=== PATIENT | female | born 1960 | race Caucasian/White ===

== ENCOUNTER → 2020-11-11 06:58 | Outpatient (CLI) | payer MEDICARE, SELFPAY ==
--- NOTE | 2020-11-11 07:14 | XR_ITS ---
PROCEDURE: XR HIP LT 2-3V W/PELVIS CLINICAL INDICATION: ALMA HIP PAIN COMPARISON: No exams were available for comparison FINDINGS: There are severe osteoarthritic changes of the left hip with superior and lateral subluxation of the femoral head. Osteosclerosis involves the femoral head and acetabular with prominent osteophyte formation of the femoral head and acetabulum. There is flattening of the femoral head. The left acetabulum is somewhat shallow with the roof tilting upward. No acute fracture or dislocation is evident. Lucency is present at the base of the lesser trochanter consistent with an ununited ossification center. A separate area of calcification is noted along the lateral aspect of the acetabulum suggesting a loose body IMPRESSION: Severe osteoarthritic changes of the left hip with dysplastic changes of the acetabulum and femoral head. There is lateral subluxation of the femoral head. Prominent osteophytes with osteosclerosis noted with loose body along the lateral acetabulum. Dictated by: Michael Livingston MD 11/11/2020 12:34 Michael Livingston MD in [place] 11/11/2020 12:34
--- NOTE | 2020-11-11 07:14 | XR_ITS ---
PROCEDURE: XR HIP RT 2-3V W/PELVIS CLINICAL INDICATION: Pain COMPARISON: CR XR HIP LT 2-3V W/PELVIS from 11/11/2020 FINDINGS: There are mild osteoarthritic changes of the right hip with slight decrease in the joint space with osteophyte formation of the acetabulum. No fracture or dislocation. No lytic or blastic change. IMPRESSION: Mild osteoarthritis of the right hip Dictated by: Michael Livingston MD 11/11/2020 12:30 Michael Livingston MD in [place] 11/11/2020 12:30
== END ==
PROVIDERS: PCP Internal Medicine Adolescent Medicine; Visit Provider Internal Medicine Adolescent Medicine
DX: M25.552 Pain in left hip (principal); M25.551 Pain in right hip
CPT/HCPCS: 73502

== ENCOUNTER → 2022-03-15 13:47 | Outpatient (CLI) | payer MEDICARE, MEDICAID, SELFPAY ==
--- NOTE | 2022-03-15 13:51 | XR_ITS ---
FINAL REPORT CLINICAL HISTORY: loop recorder FINDINGS: Two views of the chest were obtained. A loop recorder is noted in the anterior chest wall. The heart size and pulmonary vascularity are within normal limits. The mediastinum is normal. No acute pulmonary abnormality is identified. There is no pneumothorax. The bony thorax is intact. IMPRESSION: No active cardiopulmonary disease. Reviewed, Interpreted and Dictated by Nicolas Kelly III, MD Transcribed by Olga Santamaria Authenticated and [facility]
== END ==
PROVIDERS: PCP Internal Medicine Adolescent Medicine; Visit Provider Physician Assistant
DX: F43.10 Post-traumatic stress disorder, unspecified (principal); R00.1 Bradycardia, unspecified; Z95.818 Presence of other cardiac implants and grafts
CPT/HCPCS: 71046

== ENCOUNTER 2022-03-19 07:40 | Day surgery (SDC) | payer MEDICARE, MEDICAID, SELFPAY ==
[2022-03-19 07:43] VITALS: BMI 31.7
[2022-03-19 08:31] VITALS: BP 146/86; PULSE 58; RESP 18; O2SAT 97
[2022-03-19 08:35] VITALS: PULSE 54
[2022-03-19 09:11] VITALS: BP 133/69; PULSE 55; RESP 17; O2SAT 95
--- NOTE | 2022-03-19 09:34 | EXP.LOOP ---
[facility] Loop Recorder Date: 03/19/22 Time: 09:00 Procedure Performed:: Loop recorder removal Indication:: Pain at loop recorder site Battery depleted Technique:: Patient was brought to the cardiac Usability Specialist as an outpatient. After informed consent was obtained, 1% lidocaine was used to anesthetize the area over the loop recorder and a surgical blade was used to dissect down. Forceps were used to remove the device. The incision was closed with surgical glue with Steri-Strips and a pressure dressing placed with Tegaderm over that. Patient tolerated the procedure without complications. Impression:: Successful removal of loop recorder Serial Number:: Not applicable Plan:: Routine postop care
== END 2022-03-19 09:21 | disposition home or self-care (01) ==
PROVIDERS: PCP Internal Medicine Adolescent Medicine; Visit Provider Internal Medicine
DX: Z45.09 Encounter for adjustment and management of other cardiac device (principal); R00.1 Bradycardia, unspecified; F41.1 Generalized anxiety disorder; F43.10 Post-traumatic stress disorder, unspecified
CPT/HCPCS: 33286

== ENCOUNTER → 2023-02-16 10:16 | Outpatient (CLI) | payer MEDICARE, MEDICAID, SELFPAY ==
[2023-02-16 11:24] LABS: Alanine Aminotransferase 34 U/L (12-78); Albumin/Globulin Ratio 1.3 (1.1-1.8); Alkaline Phosphatase 102 U/L (38-126); Anion Gap 12.5 mEq/L (5-15); Aspartate Amino Transferase 35 U/L (14-36); Bilirubin,Total 1.1 mg/dl (0.2-1.3); Blood Urea Nitrogen 14 mg/dl (7-17); Calcium 9.4 mg/dl (8.4-10.2); Carbon Dioxide 24 mmol/L (22.0-30.0); Chloride 106 mmol/L (98-107); Cholesterol 166 mg/dl (140-200); Estimated Glomerular Filt Rate 63 ml/min (>60); GFR (African American) 77 ML/MIN (>60); Globulin 3.2 g/dL (1.3-3.2); Glucose 98 mg/dl (74-100); HDL Cholesterol 82 mg/dl (40-60); Potassium 4.5 mmoL/L (3.5-5.1); Sodium 138 mmol/L (136-145); Total Protein,Serum 7.2 g/dl (6.3-8.2); Triglycerides 103 mg/dl (30-150); VLDL Cholesterol 21 mg/dL (0-40)
[2023-02-16 11:34] LABS: Direct LDL Cholesterol 74.47 mg/dL (100-129)
[2023-02-16 12:55] LABS: Hemoglobin A1C 5.4 % (4.0-6.0)
== END ==
PROVIDERS: PCP Internal Medicine Adolescent Medicine; Visit Provider Nurse Practitioner Family
DX: I10 Essential (primary) hypertension (principal); E78.2 Mixed hyperlipidemia; R73.03 Prediabetes
CPT/HCPCS: 36415; 80053; 80061; 83036

== ENCOUNTER 2023-04-23 13:17 | Outpatient (CLI) | payer MEDICARE, MEDICAID, SELFPAY ==
--- NOTE | 2023-04-23 13:23 | XR_ITS ---
FINAL REPORT CLINICAL HISTORY: PAIN IN RIGHT AND LEFT HIP AND LOW BACK PAIN FINDINGS: 5 views were obtained. There are bilateral L5 pars defects. There is no acute fracture. There is grade 2 anterolisthesis of L5 on S1 measuring 10 mm. Moderate to severe degenerative changes are greatest at L5-S1. IMPRESSION: Grade 2 anterolisthesis of L5 on S1 with moderate to severe degenerative change. Reviewed, Interpreted and Dictated by Nicolas Kelly III, MD Transcribed by Bob Nina Authenticated and [facility]
--- NOTE | 2023-04-23 13:23 | XR_ITS ---
FINAL REPORT CLINICAL HISTORY: bilateral hip (mainly left hip) and lower back pain. arthritis FINDINGS: 2 views of the left hip were obtained. There is no acute fracture. There is severe degenerative changes of the left hip with dysplasia. There is superolateral displacement of the femur. IMPRESSION: Severe left hip dysplasia with superolateral displacement of the femur. Reviewed, Interpreted and Dictated by Nicolas Kelly III, MD Transcribed by Bob Nina Authenticated and [facility]
--- NOTE | 2023-04-23 13:23 | XR_ITS ---
FINAL REPORT CLINICAL HISTORY: .pain in hip and lower back arthritis FINDINGS: Right hip with pelvis: There is no acute fracture or dislocation. There are mild degenerative change of the right hip. There is severe degenerative change of the left hip with dysplasia and superolateral displacement of the left femur. IMPRESSION: Mild and severe degenerative changes. Reviewed, Interpreted and Dictated by Nicolas Kelly III, MD Transcribed by Bob Nina Authenticated and [facility]
== END 2023-04-23 23:59 ==
LOC: RAD 13:19
PROVIDERS: PCP Internal Medicine Adolescent Medicine; Visit Provider Nurse Practitioner Family
DX: M54.50 Low back pain, unspecified (principal); M25.551 Pain in right hip; M25.552 Pain in left hip; G89.29 Other chronic pain
CPT/HCPCS: 72110; 73502

== ENCOUNTER 2023-08-16 13:43 | Outpatient (CLI) | payer MEDICARE, MEDICAID, SELFPAY ==
--- NOTE | 2023-08-16 13:48 | US_ITS ---
PROCEDURE: US TRANSVAGINAL CLINICAL INDICATION: post menopausal bleeding COMPARISON: No exams were available for comparison FINDINGS: Transvaginal sonographic images of the pelvis were obtained. UTERUS: 7.5cm x 4.3cmx 3.9 cm anteverted with a combined endometrial thickness of 16.8mm. There is a small nabothian cyst in the cervix. LEFT OVARY: 2.3cmx2.5cmx1.1cm with a volume of 3.1ml. RIGHT OVARY: Not visualized. Left ovary is seen and appears normal. Doppler flow to left ovary seen. There is no fluid in the cul-de-sac. IMPRESSION: 1. Anteverted uterus normal in shape and size. Difficult examination. 2. The endometrium is markedly thickened at 17 mm and may be as much as 30 mm on one view. 3. The endometrium is heterogenous in appearance. 4. The right ovary is not visualized. The left ovary appears normal. 5. No fluid in the cul-de-sac. 6. Suggest endometrial sampling. Dictated by: Eligio Moore MD 08/16/2023 18:43 Eligio Moore MD in [place] 08/16/2023 18:43
== END 2023-08-16 23:59 | disposition home or self-care (01) ==
PROVIDERS: PCP Internal Medicine Adolescent Medicine; Visit Provider Obstetrics & Gynecology
DX: N95.0 Postmenopausal bleeding (principal)
CPT/HCPCS: 76830

== ENCOUNTER 2023-08-23 12:58 | Outpatient (CLI) | payer MEDICARE, MEDICAID, SELFPAY ==
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
== END 2023-08-23 23:59 | disposition home or self-care (01) ==
LOC: RT 12:59
PROVIDERS: PCP Internal Medicine Adolescent Medicine; Visit Provider Physician Assistant
DX: R00.1 Bradycardia, unspecified (principal); F43.10 Post-traumatic stress disorder, unspecified; Z01.810 Encounter for preprocedural cardiovascular examination
CPT/HCPCS: 93306

== ENCOUNTER 2023-09-04 11:54 | Outpatient (CLI) | payer MEDICARE, MEDICAID, SELFPAY ==
[2023-09-04 12:13] LABS: Basophils # 0.1 K/mm3 (0-0.2); Basophils % 1.8 % (0.1-2.0); Eosinophils # 0.4 K/mm3 (0.0-0.4); Eosinophils % 5.6 % (0.1-12.0); Hematocrit 50.1 % (37.0-47.0); Hemoglobin 16.3 g/dL (12.2-16.2); Lymphocytes # 1.3 K/mm3 (0.7-4.5); Lymphocytes % 17.5 % (10-50); Mean Corpuscular HGB Conc 32.6 g/dL (31.8-35.4); Mean Corpuscular Volume 95.1 fl (81-99); Mean Platelet Volume 8.6 fl (7.4-10.4); Monocytes # 0.6 K/mm3 (0.1-1.0); Monocytes % 7.5 % (1.7-9.3); Neutrophils % 67.6 % (37.0-80.0); Platelet Count 471 K/mm3 (142-424); Red Blood Count 5.27 M/mm3 (4.20-5.40); Red Cell Distribution Width 15.1 % (11.5-17.5); White Blood Count 7.4 K/mm3 (4.8-10.8)
[2023-09-04 12:31] LABS: Alanine Aminotransferase 38 U/L (12-78); Albumin Level 3.8 g/dl (3.5-5.0); Albumin/Globulin Ratio 1.3 (1.1-1.8); Alkaline Phosphatase 81 U/L (38-126); Anion Gap 13.2 mEq/L (5-15); Aspartate Amino Transferase 33 U/L (14-36); Bilirubin,Total 0.6 mg/dl (0.2-1.3); Blood Urea Nitrogen 20 mg/dl (7-17); Calcium 9.7 mg/dl (8.4-10.2); Carbon Dioxide 23 mmol/L (22.0-30.0); Chloride 105 mmol/L (98-107); Estimated Glomerular Filt Rate 63 ml/min (>60); GFR (African American) 76 ML/MIN (>60); Globulin 2.9 g/dL (1.3-3.2); Glucose 125 mg/dl (74-100); Potassium 4.2 mmoL/L (3.5-5.1); Sodium 137 mmol/L (136-145); Total Protein,Serum 6.7 g/dl (6.3-8.2)
== END 2023-09-04 23:59 | disposition home or self-care (01) ==
PROVIDERS: PCP Internal Medicine Adolescent Medicine; Visit Provider Obstetrics & Gynecology
DX: N95.0 Postmenopausal bleeding (principal)
CPT/HCPCS: 36415; 80053; 85025

== ENCOUNTER 2023-09-06 05:59 | Day surgery (SDC) | payer MEDICARE, MEDICAID, SELFPAY ==
[2023-09-04 10:37] VITALS: BMI 30.4
[2023-09-06] VITALS (9 sets, daily range): BP systolic 96–178; BP diastolic 57–90; PULSE 52–77; RESP 14–20; TEMP 35.6–36.6; O2SAT 94–97; BMI 30.4
[2023-09-06] MEDS: LACTATED RINGERS 1000ML 1,000 ML 25 ML IV (06:38)
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
--- NOTE | 2023-09-06 08:28 | EXP.ANES.I ---
[facility] Anesthesia Record Part I Anesthesia Record I Intake, IV Amount: 700 Hydration: Adequate Estimated blood loss (mL): 10 Urine output (mL): 0 Blood Products used (#): none Blood Pressure: 96/58 SaO2: 94 Pulse Rate: 52 Airway Patency: Patent Respiratory Rate: 14 Temperature: 96.1 F Patient is:: Awake (Talking) and Stable Stable to PACU at:: 08:20
--- NOTE | 2023-09-06 08:35 | P.OP_ITS ---
Date of procedure: 09/06/23 Pre-op Diagnosis:: 1. Postmenopausal bleeding 2. Thickened endometrial stripe Post-op Diagnosis:: 1. Postmenopausal bleeding 2. Thickened endometrial stripe Procedure performed:: Hysteroscopy, dilation, and MyoSure polypectomy Surgeon:: Saida Walsh DO SALES DIRECTOR:: Nisreen Velasquez Anesthesia: GETA Estimated blood loss (mL): 5 Operative findings:: Findings: -EUA revealed an 10-week anteverted uterus with regular contour. Narrowed vaginal introidus. no significant prolapse or support defects noted. -Hysteroscopy revealed diffusely proliferative endometrium. It was very difficult to identify the tubal ostia secondary to the proliferative endometrium. Operative note:: The patient was taken back to the OR where general anesthesia was obtained.? She was placed in the dorsal lithotomy position using yellow fin stirrups and sterilely prepped and draped in the usual fashion.? An in and out catheter was used to drain her bladder.? A timeout was performed.? A weighted speculum was unable to fit in the narrowed vaginal introitus and a narrow right angle retractor was used to visualize this cervix, a single-tooth tenaculum was applied to the anterior lip of the cervix. The cervix was only slightly dilated with Dhruv dilators to allow entry to the ectocervix and hydrodisection was used to get the scope the rest of the way into the cavity. The hysterscope was inserted and above findings were noted. Decision was made to proceed with the MyoSure to collect endometrial curettings. Device set up, primed and zeroed. The device was used to resect the outer wall of the endometrium. At the conclusion of the procedure there was a fluid deficit of 100mLs. Total myosure cutting time was less than 2 minutes. Following complete removal of the polyps the MyoSure hysteroscope was removed.?The single-tooth tenaculum was removed and hemostasis was noted at the tenaculum sites.? All instruments were removed from the vagina.? All counts were correct, per nursing.? This concluded the procedure, the patient was awakened from anesthesia, and transferred to the PACU in stable condition. Condition: stable Disposition: PACU Specimens:: Endometrial curettings Complications:: None
--- NOTE | 2023-09-06 09:15 | P.PNANES_ITS ---
[facility] Anesthesia Record Part II Anesthesia Record Part II Discharge Time: 08:45 Destination: Surgical Day Care (OP Surgery) PACU nurse assessment reviewed?: Yes Patient Condition:: Good Anesthesia Complications:: None Swallowing reflex intact?: Yes Airway Patency: Patent Cyanosis?: No Blood Pressure: 112/88 SaO2: 96 Respiratory Rate: 16 Pulse Rate: 55 Temperature: 97.7 F Mental Status: Alert & Oriented Pain level:: 0 Nausea and/or vomitting:: None Intake, IV Amount: 700 Hydration: Adequate
== END 2023-09-06 09:20 | disposition home or self-care (01) ==
PROVIDERS: PCP Internal Medicine Adolescent Medicine; Visit Provider Obstetrics & Gynecology
PROC: (CPT 58558; principal; 2023-09-06 07:30)
DX: N95.0 Postmenopausal bleeding (principal); C54.1 Malignant neoplasm of endometrium
CPT/HCPCS: 58558; J2405; J7120

== ENCOUNTER 2024-02-26 08:04 | Outpatient (CLI) | payer MEDICARE, MEDICAID, SELFPAY ==
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
[2024-02-26 08:26] LABS: Blood Urea Nitrogen 14 mg/dl (7-17); Estimated Glomerular Filt Rate 63 ml/min (>60); GFR (African American) 76 ML/MIN (>60)
[2024-02-26] MEDS: IOPAMIDOL-370 (76%);100ML BOTTLE 75 ML IV (09:24)
[2024-02-26] MEDS: SODIUM CHLORIDE 0.9% 10ML SYR (RAD ONLY) 10 ML IV (09:24)
== END 2024-02-26 23:59 | disposition home or self-care (01) ==
PROVIDERS: PCP Internal Medicine Adolescent Medicine; Visit Provider Obstetrics & Gynecology Gynecologic Oncology
DX: C54.1 Malignant neoplasm of endometrium (principal)
CPT/HCPCS: 36415; 71260; 74177; 82565; 84520; Q9967